=== PATIENT | male | born 1955 | race Two or more races ===

== ENCOUNTER → 2023-04-30 | Emergency (ER) | payer OTHER ==
[~2023-04-30] VITALS: Ht 182.9 cm; Wt 90.7 kg
[~2023-04-30] MED LIST: HYDRODIURIL12.5 MG PO; ZESTRIL20 MG PO
== END | disposition home or self-care (01) ==
LOC: ER 19:04
DX: H53.142 Visual discomfort, left eye (principal); H57.12 Ocular pain, left eye